=== PATIENT | male | born 1940 | race Caucasian/White ===

== ENCOUNTER 2017-07-06 14:28 | Outpatient (RCR) | payer MEDICARE, OTHER ==
[2016-10-23 10:04] VITALS: BP 123/73
[~2017-07-06 14:28] MED LIST: ACET-2031 PO; ACET500T68 PO; AMI10 PO; AMI25 PO; AMIT-104 PO; AMLO-99 PO; AMLO2.5T74 PO; AMLO2.5T75 PO; AMO500 PO; AMOX-559 PO; ASPI-1471 PO; ASPI81TA94 PO; ATOR20TA22 PO; CALC625T57 PO; CHLO1CAP45 PO; CIP500 PO; CIPR-214 PO; DOC100 PO; FIB PO; FISH1CAP15 PO; FLUC100T35 PO; HYDR-318 PO; IBUP800T37 PO; LAN30PT PO; LEVO-85 PO; LIB PO; METH4TAB63 PO; MULT-1177 PO; MULT-1335 PO; MULT-865 PO; MULT1TAB64 PO; MYLL PO; OMEG-27 PO; OXYC1TAB54 GT; PAN20 PO; PAN40 PO; PHEN200T32 PO; POLY17PO25 PO; RAMI10CA52 PO; RAMI10CA62 PO; RAMI5CAP53 PO; RAMI5CAP72 PO; SERT-173 PO; SODI500I12 IV; TRIA-204 PO; TRIA0.2597 PO; TRIA15OI20 TP; TRIA1CAP PO
== END 2017-07-16 09:21 | disposition home or self-care (01) ==
LOC: RAON 14:28
PROVIDERS: ATTEND Nurse Practitioner Family
DX: Z85.21 Personal history of malignant neoplasm of larynx (principal); K21.9 Gastro-esophageal reflux disease without esophagitis; I10 Essential (primary) hypertension; Z85.46 Personal history of malignant neoplasm of prostate; Z86.73 Personal history of transient ischemic attack (TIA), and cerebral infarction without residual deficits; Z92.3 Personal history of irradiation; Z92.21 Personal history of antineoplastic chemotherapy
CPT/HCPCS: G0463 ×2; 99213

== ENCOUNTER → 2017-07-27 | Outpatient (CLI) | payer MEDICARE, OTHER ==
[~2017-07-27] MED LIST changes: +AMIT-106 PO; +AMLO-96 PO; +CHLO1CAP12 PO
[2017-07-27 09:24] LABS: PLATELET COUNT, AUTOMATED 133 K/uL (150-450)
[2017-07-27 10:22] LABS: LDL CHOLESTEROL 67 mg/dl
== END ==
LOC: LAB 09:05
PROVIDERS: ATTEND Internal Medicine
DX: I10 Essential (primary) hypertension (principal); C76.0 Malignant neoplasm of head, face and neck; E78.5 Hyperlipidemia, unspecified; C61 Malignant neoplasm of prostate
CPT/HCPCS: 36415; 81001; 82040; 82247; 82310; 82374; 82435; 82465; 82565; 82947; 83718; 84075; 84132; 84153; 84155; 84295; 84443; 84450; 84460; 84478; 84520; 85025

== ENCOUNTER 2017-10-13 08:00 | Outpatient (RCR) | payer MEDICARE, OTHER ==
[2017-10-13] MEDS ORDERED: LINA145C PO (11:14)
[2017-10-13] MEDS ORDERED: PANT40TA65 PO (11:14)
[2017-10-13 11:53] LABS: PLATELET COUNT, AUTOMATED 159 K/uL (150-450)
== END 2017-10-13 18:00 | disposition home or self-care (01) ==
LOC: CT 08:00 → LAB 11:17 → CT 18:00 → EDSTATUS 10-14 07:06 → CT 10-14 07:06
PROVIDERS: ATTEND Internal Medicine
DX: K21.9 Gastro-esophageal reflux disease without esophagitis (principal); K59.00 Constipation, unspecified; K58.9 Irritable bowel syndrome, unspecified; R10.30 Lower abdominal pain, unspecified
CPT/HCPCS: 36415; 81001; 82040; 82150; 82247; 82310; 82374; 82435; 82565; 82947; 83690; 84075; 84132; 84155; 84295; 84443; 84450; 84460; 84520; 85025

== ENCOUNTER → 2017-11-02 | Outpatient (CLI) | payer MEDICARE, OTHER ==
[~2017-11-02] MED LIST changes: +LINA145C PO; +PANT40TA65 PO
--- NOTE | 2017-11-03 08:27 | EKG ---
FACILITY: [facility] [place] PATIENT NAME: ANIBAL MCCLENDON : [id number] MR: [id number] V: [id number] EXAM DATE: ORDERING PHYSICIAN: KEY BOWDEN TECHNOLOGIST: MALVIN Akhtar Reason : DIZZINESS Blood Pressure : / mmHG Vent. Rate : 065 BPM Atrial Rate : 065 BPM P-R Int : 234 ms QRS Dur : 114 ms QT Int : 410 ms P-R-T Axes : 038 -63 -07 degrees QTc Int : 426 ms Sinus rhythm with 1st degree AV block Left axis deviation Incomplete left bundle branch block Abnormal ECG When compared with ECG of 10-APR-2015 09:37, premature ventricular complexes are no longer present Confirmed by KEY BOWDEN ([id number]) on 11/03/2017 9:09:03 AM Referred By: Confirmed By:KEY BOWDEN
== END ==
LOC: RESP 16:07
PROVIDERS: ATTEND Internal Medicine
DX: Z02.9 Encounter for administrative examinations, unspecified (principal)

== ENCOUNTER → 2017-11-03 | Outpatient (CLI) | payer MEDICARE, OTHER ==
[~2017-11-03] MED LIST changes: +GADOBENATE 529MG/1ML 15ML VIAL IVP ONE
--- NOTE | 2017-11-03 15:35 | RADIOLOGY IMAGING REPORT ---
FACILITY: [facility] [place] PATIENT NAME: Gary Lozada : 1940 MR: [id number] V: [id number] EXAM DATE: ORDERING PHYSICIAN: KEY BOWDEN TECHNOLOGIST: Location: [facility] Patient: Gary Lozada : 1940 Visit/Account:[id number] Date of Sevice: 11/03/2017 BRAIN W W/O CONTRAST ADDITIONAL PERTINENT HISTORY: Dizziness, hyperlipidemia, benign hypertension, tinnitus COMPARISON STUDIES: April 03, 2016 TECHNIQUE: Multi-planar, multi-sequence brain MRI was performed with and without IV contrast adminis tration. Contrast: 15 mL MultiHance FINDINGS: Ventricles / sulci / fissures: Negative. Masses / hemorrhage / midline shift: Negative. White matter: There are scattered regions of abnormal increased T2 and FLAIR signal intensity within the particular white matter and subcortical white matter that appear some are to the prior study lik fiona representing chronic small vessel ischemic change Jay-white differentiation: Normal. Extra-axial fluid collections: Negative. Intracranial vasculature and dural sinuses: Negative. Skull base / calvarium: Negative. Visualized mastoid air cells / paranasal sinuses: Well aerated. Orbits: Negative. Upper neck:Negative. IMPRESSION: Chronic microischemic changes with periventricular and subcortical white matter similar to the prior study Report Dictated By: Lizabeth Torres MD at 11/03/2017 3:12 PM Report E-Signed By: Lizabeth Torres MD at 11/03/2017 3:30 PM WSN:[email or web address]
--- NOTE | 2017-11-03 16:48 | RADIOLOGY IMAGING REPORT ---
FACILITY: [facility] PATIENT NAME: Gary Lozada : 1940 MR: [id number] V: [id number] EXAM DATE: ORDERING PHYSICIAN: KEY BOWDEN TECHNOLOGIST: Location: [facility] [place] Patient: Gary Lozada : 1940 Visit/Account:[id number] Date of Sevice: 11/03/2017 EXAMINATION: Brain MRI without IV contrast Brain MRI with IV contrast, detailed IACs HISTORY: Dizziness off balance COMPARISON: Today's MR the brain with and without contrast and MR the brain April 03, 2016 TECHNIQUE: Multi-planar, multi-sequence brain MRI was performed before and after IV gadolinium. Thin section imaging was performed in the axial and coronal planes centered on the IACs. CONTRAST: 15 mL of IV FINDINGS: IAC detailed study: Brain stem: Negative. Cerebellopontine angles: Negative. IACs / CN VII and VIII: Negative. Inner ear: Negative. Middle ear: Negative. Mastoids / petrous apices: Negative. Rest of brain: Brain volume: Normal. Sagittal midline structures: Normal. Ventricles: Normal. Acute ischemic changes: None. Hemorrhage: None. Masses / edema: None. Enhancement: Normal. Jay-white: Negative. White matter: Chronic microischemic changes are seen throughout the periventricular white matter and subcortical white matter as discussed in today's MR the brain Vessels: Normal. Extra-axial: Normal. Calvarium / scalp: Negative. Skull base: Negative. Visualized sinuses / orbits: Negative. Visualized upper neck: Negative. IMPRESSION: Chronic microischemic changes are seen throughout the periventricular white matter and subcortical wh ite matter as discussed on today's MR the brain. They appear similar to prior study April 03, 2016 Report Dictated By: Lizabeth Torres MD at 11/03/2017 4:37 PM Report E-Signed By: Lizabeth Torres MD at 11/03/2017 4:44 PM WSN:[email or web address]
== END ==
LOC: MRI 07:29
PROVIDERS: ATTEND Internal Medicine
DX: R90.82 White matter disease, unspecified (principal)
CPT/HCPCS: 70553; A9577

== ENCOUNTER → 2017-12-03 | Outpatient (REF) | payer MEDICARE, OTHER ==
[~2017-12-03] MED LIST changes: +AMLO-111 PO; +AMLO-113 PO; -AMLO-96 PO; -AMLO-99 PO; -GADOBENATE 529MG/1ML 15ML VIAL IVP ONE; -RAMI10CA52 PO; +RAMI10CA9 PO; -RAMI5CAP53 PO; +RAMI5CAP7 PO
[2017-12-03 10:59] LABS: PLATELET COUNT, AUTOMATED 136 K/uL (150-450)
== END ==
PROVIDERS: ATTEND Nurse Practitioner Family
DX: R10.30 Lower abdominal pain, unspecified (principal)
CPT/HCPCS: 82040; 82247; 82310; 82374; 82435; 82565; 82947; 84075; 84132; 84155; 84295; 84450; 84460; 84520; 85025

== ENCOUNTER → 2017-12-03 | Outpatient (CLI) | payer MEDICARE, OTHER ==
[~2017-12-03] MED LIST changes: +IOPAMIDOL 76% 75 ML INFUS BTL 75 ML ONE
--- NOTE | 2017-12-03 13:04 | RADIOLOGY IMAGING REPORT ---
FACILITY: [facility] [place] PATIENT NAME: Gary Lozada : 1940 MR: [id number] V: [id number] EXAM DATE: ORDERING PHYSICIAN: JYOTI JIN TECHNOLOGIST: Location: [facility] [place] Patient: Gary Lozada : 1940 Visit/Account:[id number] Date of Sevice: 12/03/2017 ABDOMEN/PELVIS W/WO CONTRAST HISTORY: Groin and lower abdominal pain TECHNIQUE: Axial images acquired through the abdomen/pelvis both with and without IV contrast.. Volodymyr nal and sagittal reformatting also performed. One of the following dose optimization techniques was utilized in the performance of this exam: Aut omated exposure control; adjustment of the mA and/or kV according to the patient's size; or use of an iterative reconstruction technique. Specific details can be referenced in the facility's radiology CT exam operational policy. CONTRAST: 75 mL Isovue-370 COMPARISON: 07/03/2011 FINDINGS: Visualized lung bases: Negative. Hepatobiliary: No liver lesions. Gallbladder unremarkable Spleen: Negative. Adrenals: Negative. Pancreas: Negative. Kidneys ureters and bladder: No renal stones or renal obstructive uropathy change. Genitalia: Prostatectomy. GI: There are diverticuli without evidence of diverticulitis. No colonic mass lesion. No bowel infl ammation. Appendix not visualized Lymph nodes: No pathologic lymphadenopathy. Apparent iliac node resection bilaterally. Vessels/spaces/nodes: No pathologic lymph node adenopathy. Bones/soft tissues: No osteolytic or blastic bone lesions identified. Previous midline anterior abdominal hernia repair Additional findings: None pertinent. IMPRESSION: 1. Negative CT scan of the abdomen/pelvis for acute pathology. 2. Prostatectomy. Report Dictated By: Ab Duncan MD at 12/03/2017 12:45 PM Report E-Signed By: Ab Duncan MD at 12/03/2017 1:00 PM WSN:[email or web address]
== END ==
LOC: CT 11:47
PROVIDERS: ATTEND Nurse Practitioner Family
DX: Z90.79 Acquired absence of other genital organ(s) (principal)
CPT/HCPCS: 74178; Q9967

== ENCOUNTER → 2017-12-15 | Outpatient (CLI) | payer MEDICARE, OTHER ==
[~2017-12-15] MED LIST changes: -IOPAMIDOL 76% 75 ML INFUS BTL 75 ML ONE
--- NOTE | 2017-12-15 14:40 | RADIOLOGY IMAGING REPORT ---
FACILITY: [facility] [place] PATIENT NAME: Gary Lozada : 1940 MR: [id number] V: [id number] EXAM DATE: ORDERING PHYSICIAN: SUNIL WILSON TECHNOLOGIST: Location: [facility] Patient: Gary Lozada : 1940 Visit/Account:[id number] Date of Sevice: 12/15/2017 KUB SINGLE VIEW ABDOMEN INDICATION: Right lower abdominal pain. COMPARISON: None available FINDINGS: Single frontal view the abdomen. There are some stool seen throughout colon. The bowel ga s pattern is nonobstructed and nondilated. Abdominal soft tissues are grossly normal without suspicio us lucencies or abnormal calcifications. Vascular calcifications surgical clips seen in the pelvis. N o acute bony abnormality. IMPRESSION: Unremarkable exam. Report Dictated By: Cristo Ascencio at 12/15/2017 2:35 PM Report E-Signed By: Cristo Ascencio at 12/15/2017 2:36 PM WSN:[id number]
== END ==
LOC: RAD 13:36
PROVIDERS: ATTEND Nurse Practitioner Primary Care
DX: R10.31 Right lower quadrant pain (principal)
CPT/HCPCS: 74018

== ENCOUNTER → 2018-03-01 | Outpatient (CLI) | payer MEDICARE, OTHER | LOC: AUD 14:00 | PROVIDERS: ATTEND Internal Medicine | DX: H90.3 Sensorineural hearing loss, bilateral (principal) | CPT/HCPCS: 92553 ==

== ENCOUNTER 2018-06-07 20:40 | Emergency (ER) | payer MEDICARE, OTHER ==
[~2018-06-07 20:40] MED LIST changes: -AMLO-111 PO; -AMLO-113 PO; +AMLO-125 PO; +AMLO-127 PO
--- NOTE | 2018-06-07 21:19 | ER Report ---
History and Physical Time Seen By MD: 20:55 Hx. of Stated Complaint: PATIENT STATED HE DROPPED A DRILL PRESS ON HIS LEFT GREAT TOE HPI/ROS CHIEF COMPLAINT: toe pain HISTORY OF PRESENT ILLNESS: 77-year-old male dropped a drill press on his toe at approximately 3 PM he states this was 80 pounds. He states he did not have initial pain but shortly thereafter developed significant pain in his toe which ranges from 3-6 out of 10. He has not tried anything for pain though he did ice the toe just directly before coming. He was initially able to really but now sta january he is having difficulty ambulating. He does not have other symptoms, injuries, or other complications. REVIEW OF SYSTEMS: Respiratory: No cough, no dyspnea. Cardiovascular: No chest pain, no palpitations. Gastrointestinal: No vomiting, no abdominal pain. Musculoskeletal: No back pain. Remainder of the 14 system rev: Yes Allergies: Coded Allergies: No Known Drug Allergies (Unverified , 06/07/18) Home Meds Active Scripts Sertraline Hcl (ZOLOFT) 100 Mg Tablet, 1 TAB PO QDAY, #30 TAB 3 Refills Prov:KEY BOWDEN MD 05/23/18 Atorvastatin Calcium (LIPITOR) 20 Mg Tablet, 1 TAB PO QDAY, #90 TAB 1 Refill Prov:KEY BOWDEN MD 01/13/18 Pantoprazole Sodium (PANTOPRAZOLE SODIUM) 40 Mg Tablet.dr, 40 MG PO QDAY, #30 TAB.SR 6 Refills Prov:KEY BOWDEN MD 10/13/17 Linaclotide (LINZESS) 145 Mcg Capsule, 145 MCG PO QDAY, #30 CAPSULE 2 Refills Prov:KEY BOWDEN MD 10/13/17 Ramipril (RAMIPRIL) 10 Mg Capsule, 10 MG PO QDAY, #90 CAPSULE 3 Refills Prov:KEY BOWDEN MD 07/26/17 Amitriptyline Hcl (AMITRIPTYLINE HCL) 25 Mg Tablet, 25 MG PO QHS, #90 TAB 2 Refills Prov:KEY BOWDEN MD 07/26/17 Reported Medications Fluconazole (DIFLUCAN) 100 Mg Tablet, 100 MG PO QDAY Refills X 3 (04/01/18) 04/01/18 Acetaminophen (TYLENOL EXTRA STRENGTH) 500 Mg Tablet, 500 MG PO PRN PRN for PAIN, TAB 06/23/17 Multivitamin (DAILY MULTIPLE VITAMIN) 1 Each Tablet, 1 TAB PO DAILY 10/08/16 Calcium Polycarbophil (FIBERCON) 625 Mg Tablet, 625 MG PO DAILY 10/08/16 Aspirin (ASPIRIN) 81 Mg Tab.chew, 81 MG PO QDAY, TAB.CHEW 10/08/16 Ibuprofen (IBUPROFEN) 800 Mg Tablet, 1 TAB PO TID PRN for PAIN, #30 TAB 06/08/16 Reviewed Nurses Notes: Yes Hx Smoking: No Smoking Status: Never Smoker, Former Smoker Hx Substance Use Disorder: No Hx Alcohol Use: No Constitutional Vital Sign - Last 24 Hours 06/07/18 20:46 Temp 98.6 Pulse 87 Resp 16 B/P (MAP) 168/102 Pulse Ox 93 O2 Delivery Room Air Physical Exam General Appearance: The patient is alert, has no immediate need for airway protection and no current signs of toxicity. Eyes: Pupils equal and round no injection. Respiratory: Chest is non tender, lungs are clear to auscultation. Cardiac: regular rate and rhythm Musculoskeletal: Right great toe tenderness at MTP joint, cr < 3 sec, Skin: No rashes or lesions. DIFFERENTIAL DIAGNOSIS: After history and physical exam differential diagnosis was considered for toe fracture, dislocation, ligamentous injury or other emergent etiology. Medical Decision Making ED Course/Re-evaluation ED Course 77 y/o m presents with foot contusion. He has no sgs fracture on xray; has soft tissue swelling on plantar surface at distal metatarsal/mtp but without deformity, without e/o compartment syndrome. Will d/c with supportive care and with strict return precautions. Decision to Disposition Date: Jun 07, 2018 Decision to Disposition Time: 22:40 Depart Departure Latest Vital Signs Vital Signs Date Time Temp Pulse Resp B/P (MAP) Pulse Ox O2 Delivery O2 Flow Rate FiO2 06/07/18 20:46 98.6 87 16 168/102 93 Room Air Impression: Primary Impression: Foot contusion Condition: Improved Disposition: HOME OR SELF-CARE Referrals: KEY BOWDEN MD (PCP) 2 Days Patient Instructions: Foot Contusion (ED) Additional Instructions: As we discussed, I recommend you keep foot elevated above the level of the heart on at least 3 pillows as much as possible. Ice 20 minutes at a time every hour. You may use ibuprofen 600 mg every 8 hours, and Tylenol 650 mg every 6 hours. You may use Lortab as needed for uncontrolled pain. As we discussed, please ret urn for new numbness, worsening pain, or any concerns. Problem Qualifiers Primary Impression: Foot contusion Encounter type: initial encounter Laterality: left Qualified Codes: S90.32XA - Contusion of left foot, initial encounter ANIBAL GONZALEZ MD Jun 07, 2018 21:19
[2018-06-07] MEDS ORDERED: ACETAMINOPHEN 325 MG TAB PO ONE (21:30)
[2018-06-07] MEDS ORDERED: IBUPROFEN 600 MG TAB PO ONE (21:30)
--- NOTE | 2018-06-07 22:15 | RADIOLOGY IMAGING REPORT ---
FACILITY: [facility] PATIENT NAME: Gary Lozada : 1940 MR: [id number] V: [id number] EXAM DATE: ORDERING PHYSICIAN: GARY GONZALEZ TECHNOLOGIST: Location: [facility] Patient: Gary Lozada : 1940 Visit/Account:[id number] Date of Sevice: 06/07/2018 EXAMINATION: Left first toe radiographs 3 views HISTORY: Patient dropped 80 pound drill press on base of great toe. COMPARISON: None. FINDINGS: AP, lateral and oblique views of the left first toe are obtained. Bones: No evidence of acute fracture of the left first toe. There is a small chronic ossification al richard the base of the first proximal phalanx. Joint spaces: No dislocation. Hardware: None. Alignment: Normal. Soft tissues: Negative. IMPRESSION: No evidence of acute fracture of the left first toe. Report Dictated By: David Thompson MD at 06/07/2018 10:09 PM Report E-Signed By: David Thompson MD at 06/07/2018 10:12 PM WSN:[id number]
--- NOTE | 2018-06-07 22:17 | RADIOLOGY IMAGING REPORT ---
FACILITY: [facility] [place] PATIENT NAME: Gary Lozada : 1940 MR: [id number] V: [id number] EXAM DATE: ORDERING PHYSICIAN: GARY GONZALEZ TECHNOLOGIST: Location: [facility] Patient: Gary Lozada : 1940 Visit/Account:[id number] Date of Sevice: 06/07/2018 EXAMINATION: Left foot radiographs 3 views HISTORY: Patient dropped 80 pound drill press on base of great toe. Tenderness to palpation. COMPARISON: None. FINDINGS: AP, lateral and oblique views of the left foot are obtained. Bones: No evidence of acute fracture. Small plantar and Achilles calcaneal enthesophytes. Joint spaces: Mild joint degenerative changes at the first MTP joint. Hardware: None. Alignment: Normal. Soft tissues: Negative. IMPRESSION: No acute left foot fracture. 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 Report Dictated By: David Thompson MD at 06/07/2018 10:12 PM Report E-Signed By: David Thompson MD at 06/07/2018 10:14 PM WSN:[id number]
[2018-06-07 22:30] VITALS: BP 128/78
[2018-06-07] MEDS ORDERED: DOCUSATE SODIUM 100 MG CAP PO ONE (22:40)
[2018-06-07] MEDS ORDERED: diphenhydrAMINE 25 MG CAP PO ONE (22:40)
[2018-06-07] MEDS ORDERED: ACET/HYDROC 5/325MG TH ER ONLY 2 TAB/BOTTLE PO ONE (22:40)
[2018-06-07] MEDS ORDERED: APAP/HYDROCODONE 325/5 TAB PO ONE (22:40)
[2018-06-09] MEDS ORDERED: AMOX-559 PO (09:24)
== END 2018-06-07 22:58 | disposition home or self-care (01) ==
LOC: ER 21:01
DX: S90.32XA Contusion of left foot, initial encounter (principal); W20.8XXA Other cause of strike by thrown, projected or falling object, initial encounter
CPT/HCPCS: 73630; 73660; 99284; A9270; L3260; Q0163

== ENCOUNTER 2018-06-28 09:51 | Outpatient (RCR) | payer MEDICARE, OTHER ==
--- NOTE | 2018-04-02 08:30 | PURVIANCE FOLLOW UP ---
EVENT DATE: April 01, 2018 DIAGNOSIS/ONCOLOGY TREATMENT HISTORY 1. 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 Patient had N2b disease. He completed one induction of chemotherapy followed by external beam radiation therapy and weekly cisplatin to a dose of 6720 cGY, completed in October 2011. 2. History of prostate cancer, status post radical prostatectomy [place] [address]. INTERVAL HISTORY The patient presents today for followup. On presentation today, patient does report his dysphagia has worsened over the last two weeks. He states that he has dysphagia to dry solid food. The patient has mild xerostomia. Otherwise, no new complaints. PAST MEDICAL HISTORY 1. Squamous cell carcinoma of the supraglottic larynx, see above. 2. GERD. 3. Irritable bowel syndrome. 4. Hypertension. 5. Lacunar infarct with TIA. 6. Prostate cancer. ALLERGIES No known drug allergies. MEDICATIONS 1. Amlodipine. 2. Amitriptyline. 3. Aspirin. 4. Prevacid. 5. Ramipril. 6. FiberCon. 7. Multivitamin. 8. Zoloft. SOCIAL HISTORY No new history. FAMILY HISTORY No new history. PHYSICAL EXAM VITALS: Per EMR. CONSTITUTIONAL AND GENERAL APPEARANCE: The patient is sitting comfortably in the chair in no acute distress. HEENT: Patient does have evidence of thrush in his oral cavity. Dentition is intact. He has no palpable lesions along his base of tongue. NECK: Supple, trachea is midline. There are no masses bilaterally. LUNGS: Clear to auscultation and percussion bilaterally. CARDIOVASCULAR: Regular rate and rhythm. Normal S1 and S2. No murmurs, rubs or gallops. ABDOMEN: Soft and nontender with active bowel sounds. No hepatosplenomegaly. EXTREMITIES: No edema, clubbing or cyanosis. NEUROLOGIC: The patient is alert and oriented x3. Gait is normal. PERFORMANCE STATUS: 90%. IMPRESSION Squamous cell carcinoma of the head and neck, clinically no evidence of disease, now over six years remote. Patient does recent worsening of dysphasia with evidence of thrust. PLAN The patient will be given a prescription for Diflucan. He will be scheduled to followup with radiation oncology in three months. [facility]
[2018-06-23 15:18] VITALS: BP 144/80
[2018-06-28 10:06] VITALS: BP 160/89
--- NOTE | 2018-06-28 14:02 | ONCOLOGY FOLLOW UP NOTE ---
EVENT DATE: June 28, 2018 CHIEF COMPLAINT/REASON FOR VISIT Throat pain with swallowing. Patient is here for further assessment. ONCOLOGY TREATMENT HISTORY 1. 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 Patient presenting with N2b disease. He received one cycle of chemotherapy followed by external beam radiotherapy and weekly cisplatin to a 6720 cGy, completed October 31. 2. History of adenocarcinoma of the prostate, status radical prostatectomy in [address]. INTERVAL HISTORY Mr. Lozada was seen for a followup appointment today. He is still experiencing problems with dysphagia and states that this has been most noticeable to him over the last 2 to 4 months. He was seen by Dr. Shaw and placed on Diflucan trial in early March. The patient is concerned that he has some form of thrush recurrence but I think that is speculative at this time. Prior to this appointment, he had a TSH due to fatigue, which was normal at 3.49. PSA was undetectable. Those studies were drawn on July 27, 2017. The patient does have a dry mouth and dry throat, which may be a contributing factor to symptoms, although further etiology will be ruled out. He does have a history of GERD as well. He does not think his PPI is helping at this juncture relieving any of his symptoms so that was placed on hold today. MEDICATIONS 1. Zoloft 100 mg every day. 2. Lipitor 20 mg every day. 3. Ramipril 10 mg every day. 4. Amitriptyline 25 mg at bedtime. 5. Aspirin 81 mg every day. 6. Ibuprofen p.r.n. pain. 7. Multivitamin. ALLERGIES None. PAST MEDICAL HISTORY 1. Squamous cell carcinoma of the supraglottic larynx. 2. GERD. 3. Irritable bowel syndrome. 4. Hypertension. 5. Prior lacunar infarct with TIA with history of remote prostate cancer. SOCIAL HISTORY/FAMILY HISTORY Reviewed in EMR. No new data. REVIEW OF SYSTEMS Notable for occasional difficulty with hearing, difficulty finding words, intermittent dry cough, some increased urinary urgency at times, joint pain, stiffness, occasional constipation. PHYSICAL EXAMINATION GENERAL: Karnofsky Performance Status: 90. VITAL SIGNS: BP 160/89, pulse 90, respirations 16, O2 sat 93%, weight 204. HEENT: Intraoral inspection reveals slightly dry mucosal membranes. Otherwise, unremarkable. NECK: No palpable lymphadenopathy. Nonspecific fullness, possibly related to prior therapy but no specific mass effect. No tenderness on movement of the larynx from side to side. LUNGS: Clear bilaterally. HEART: Regular. ABDOMEN: Soft. No gross organomegaly. EXTREMITIES: No edema or cyanosis. NEUROLOGIC: Grossly intact. Fiberoptic exam was also performed during this visit. Topical anesthesia was performed of the left naris. I inspected the nasopharynx, posterior oropharynx and supraglottic larynx. No obvious thrush on my direct inspection of the mucosa. Mucosa is somewhat pale. Posteriorly, there is prominence of the base of tongue. However, this is a difficult thing to discern whether there was tumor below that location or whether that is simply a normal variant for the patient. Further workup will be indicated and listed below. Vocal cords appear to move symmetrically. No direct lesions noted on the epiglottis. Digital photographs are obtained. IMPRESSION/PLAN 1. Throat pain, etiology unclear. Patient will have a PET CT scan in [facility] within the next 7 to 14 days and see me back at that time. 2. I have placed him on another course of Diflucan, this time at 200 mg p.o. every day for 14 days to see if that has symptomatic benefit. 3. Encourage liquids. 4. More to follow within the next few weeks. If I am unable to make the correct diagnosis, I will refer the patient for subspecialty evaluation. HUGO
== END 2018-06-30 ==
LOC: RAON 09:51
PROVIDERS: ATTEND Radiology Radiation Oncology
DX: Z85.89 Personal history of malignant neoplasm of other organs and systems (principal); Z92.21 Personal history of antineoplastic chemotherapy; Z92.3 Personal history of irradiation; Z85.46 Personal history of malignant neoplasm of prostate; R13.10 Dysphagia, unspecified; K11.7 Disturbances of salivary secretion
CPT/HCPCS: 36415; 84153; 84443; G0463; 99212

== ENCOUNTER → 2018-07-08 | Outpatient (CLI) | payer MEDICARE, OTHER ==
--- NOTE | 2018-07-08 13:49 | RADIOLOGY IMAGING REPORT ---
FACILITY: [facility] [place] PATIENT NAME: Gary Lozada : 1940 MR: [id number] V: [id number] EXAM DATE: ORDERING PHYSICIAN: ROSAS BERNSTEIN TECHNOLOGIST: Location: [facility] [place] Patient: Gary Lozada : 1940 Visit/Account:[id number] Date of Sevice: 07/08/2018 MR FACE NECK ORBIT W & W/O CON INDICATION: HPV, malignant neoplasm of the epiglottis and tongue COMPARISON: Neck CT October 26, 2014, cervical spine MR 02/25/2006 TECHNIQUE: Multiplane pre and postcontrast MR imaging performed through the neck. 15 mL MultiHance in jected. FINDINGS: Mild to moderate right maxillary sinus mucosal thickening and trace right maxillary sinus fluid noted . Diminutive bilateral submandibular glands. Normal parotid glands and normal thyroid gland. Normal neck soft tissues without neck mass identified. No enlarged or suspicious appearing neck lymph nodes. Multilevel mild cervical spine disc space degeneration. 4 mm C6-7 disc protrusion has increased in s ize compared to 2006 cervical spine MR this results in moderate canal narrowing. IMPRESSION: 1. No neck mass or adenopathy. No evidence of recurrent disease. 2. 4 mm C6-7 disc protrusion has increased in size compared to 2006 MR and results in moderate canal narrowing which is otherwise not well characterized on this exam. 3. Mild to moderate right maxillary sinus mucosal thickening and trace right maxillary sinus fluid. 4. Otherwise unremarkable neck MR without and with contrast. Report Dictated By: Ervin Parada MD at 07/08/2018 1:15 PM Report E-Signed By: Ervin Parada MD at 07/08/2018 1:45 PM WSN:[email or web address]
== END ==
LOC: MRI 10:53
PROVIDERS: ATTEND Radiology Radiation Oncology
DX: J32.0 Chronic maxillary sinusitis (principal)
CPT/HCPCS: 70543; A9577

== ENCOUNTER 2018-07-12 15:00 | Outpatient (RCR) | payer MEDICARE, OTHER ==
[2018-07-12 15:13] VITALS: BP 149/80
--- NOTE | 2018-07-13 01:44 | ONCOLOGY FOLLOW UP NOTE ---
EVENT DATE: July 12, 2018 CHIEF COMPLAINT/REASON FOR VISIT Patient is here for clinical reassessment. 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 Successful completion of radiation therapy in 2011. Patient is also here for prostate carcinoma surveillance. Successful radical prostatectomy in 2001. Finally, patient has been experiencing dysphagia with workup now complete, including PET/CT scan and MRI scan of the oral cavity and neck. INTERVAL HISTORY Reference is made to my note dated 06/28/18. 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 He presented with N2b disease, had one cycle of chemotherapy (cisplatin) followed by external beam radiation therapy to 6720 cGy with complete response in 2011. He also has a history of prostate carcinoma, undergoing a prostatectomy in [address] De, with reassessment of his PSA today. Patient was complaining at his last visit of dysphagia, which had been present for two to four months. He was placed on a trial of Diflucan in early March by Dr. Shaw with minor effect. He was concerned that he had a recurrence of thrush, although I could not visibly see signs with direct visualization at his last visit. Requested laboratory studies be repeated, and a PET/CT scan. PET/CT scan was obtained in [place] at patient's request. There were no signs of tumor activity in the lymph nodes. The radiologist recommended further assessment in regard to the base of the tongue. I then requested an MRI scan of the neck and oral cavity. This was obtained at [facility], and those films were personally reviewed by myself and the patient today. Studies were obtained on 07/08/18. No evidence of cancer recurrence. Mild to moderate right maxillary sinus mucosal thickening and trace fluid is noted. He does have degenerative spine disease with a 4 mm C6-C7 disc protrusion. Patient was made aware of this. Previously he has had radicular pain into his hands, but presently is not having any symptoms in that regard. He has undergone previous spinal surgery. The visualization of the epiglottis and base of tongue was unremarkable. Patient states, remarkably, his symptom complex resolved within five days of starting Diflucan. At last visit, I actually increased the dose from 100 mg a day to 200 mg a day and placed him on a 14-day trial. He states he has not felt better for many years. He asked if he could stay on the medication, and I will list my response below. MEDICATIONS 1. Zoloft 100 mg every day. 2. Lipitor 20 mg every day. 3. Ramipril 10 mg every day. 4. Amitriptyline 25 mg at bedtime. 5. Aspirin 81 mg every day. 6. Ibuprofen p.r.n. pain. 7. Multivitamin. ALLERGIES None. PAST MEDICAL HISTORY 1. Squamous cell carcinoma of the supraglottic larynx. 2. GERD. 3. Irritable bowel syndrome. 4. Hypertension. 5. Prior lacunar infarct with TIA with history of remote prostate cancer. SOCIAL HISTORY/FAMILY HISTORY Reviewed in EMR. No new data. REVIEW OF SYSTEMS Notable for occasional difficulty with hearing, difficulty finding words, intermittent dry cough, some increased urinary urgency at times, joint pain, stiffness, occasional constipation. PHYSICAL EXAMINATION GENERAL: A pleasant 76-year-old male of medium build. Performance status 90% (Karnofsky). LYMPHATIC: No palpable lymphadenopathy of the neck. HEENT: Intraoral inspection reveals normal-appearing oral tongue with no visible thrush. LUNGS: Clear bilaterally. HEART: Heart sounds regular. Remainder of the examination is unremarkable. IMPRESSION 1. Dysphagia secondary to occult thrush, which has now completely resolved with a two-week course of Diflucan at the 200 mg strength. 2. No evidence of cancer recurrence. PLAN Patient asked whether he could stay on the medication indefinitely. I did a brief search on the internet and decided that this would be a bad idea, as the patient could develop a resistant fungal species. He was given a prescription for Diflucan 200 mg p.o. daily x14 days to take p.r.n. recurrent symptoms, refills x2. If more than that, he should be seen in the office by myself, and I told him I would potentially refer him to Infectious Disease at that juncture for their thoughts. The patient was very pleased with the news. I should also mention here that his PSA was undetectable and his TSH within normal range at 2.7. Patient will return to the clinic in one year or will be seen sooner as needed. He will follow up with Dr. Reed for primary medical needs. All questions answered to his satisfaction over a 40-minute clinical examination, of which 35 minutes was spent directly face to face with the patient, and five minutes reviewing records, images, and counseling. HUGO
[2018-07-13] MEDS ORDERED: FLUC100T35 PO (16:56)
[2018-08-08] MEDS ORDERED: SERT-173 PO (11:36)
[2018-08-08] MEDS ORDERED: ATOR20TA22 PO (11:46)
[2018-08-08] MEDS ORDERED: RAMI10CA9 PO (13:59)
[2018-09-26] MEDS ORDERED: MUPI22OI28 TP (16:54)
[2018-09-26] MEDS ORDERED: CEFPR500PT PO (16:54)
== END 2018-09-19 13:51 | disposition home or self-care (01) ==
LOC: RAON 15:00
PROVIDERS: ATTEND Radiology Radiation Oncology
DX: Z85.89 Personal history of malignant neoplasm of other organs and systems (principal); Z92.21 Personal history of antineoplastic chemotherapy; Z92.3 Personal history of irradiation; Z85.46 Personal history of malignant neoplasm of prostate; R13.10 Dysphagia, unspecified
CPT/HCPCS: 99212

== ENCOUNTER → 2018-10-10 | Outpatient (CLI) | payer MEDICARE, OTHER ==
[~2018-10-10] MED LIST changes: +CEFPR500PT PO; +MUPI22OI28 TP
[2018-10-10 17:14] LABS: PLATELET COUNT, AUTOMATED 120 K/uL (150-450)
--- NOTE | 2018-10-11 09:05 | EKG ---
FACILITY: [facility] [place] PATIENT NAME: ANIBAL MCCLENDON : [id number] MR: [id number] V: [id number] EXAM DATE: ORDERING PHYSICIAN: KEY BOWDEN TECHNOLOGIST: DEEP Akhtar Reason : DIZZINESS Blood Pressure : / mmHG Vent. Rate : 067 BPM Atrial Rate : 067 BPM P-R Int : 228 ms QRS Dur : 118 ms QT Int : 450 ms P-R-T Axes : 034 -66 -64 degrees QTc Int : 475 ms Sinus rhythm with 1st degree AV block Left anterior fascicular block ST and T wave abnormality, consider anterolateral ischemia Prolonged QT Abnormal ECG No previous ECGs available Confirmed by Denzel Alex ([id number]) on 10/11/2018 8:34:50 PM Referred By: KEY BOWDEN Confirmed By:Denzel Castro
== END ==
LOC: RESP 16:40
PROVIDERS: ATTEND Internal Medicine
DX: I10 Essential (primary) hypertension (principal)
CPT/HCPCS: 36415; 81001; 82040; 82247; 82310; 82374; 82435; 82565; 82947; 84075; 84132; 84153; 84155; 84295; 84443; 84450; 84460; 84520; 85025